=== PATIENT | female | born 1975 | race Caucasian/White ===

== ENCOUNTER 2022-08-24 06:45 | Day surgery (SDC) | payer SELFPAY ==
[2022-08-21 16:05] VITALS: BMI 29.5
[~2022-08-24 06:45] MED LIST: ACETAMINOPHEN 325 MG TABLET (FP) PO PRN; DOCUSATE SODIUM 100 MG CAPSULE (FP) PO PRN; HYDROmorphone HCl 2 MG/ML VIAL IVPB PRN; LACTATED RINGERS SOLUTION 1,000 ML IV SCH; ONDANSETRON 4 MG/2 ML VIAL IVPUSH PRN
[2022-08-24] MEDS ORDERED: oxyCODONE HCL 5 MG TABLET PO PRN ×2 (06:47→06:50)
[2022-08-24] MEDS ORDERED: diazePAM 2 MG TABLET PO PRN ×2 (06:47→21:43)
[2022-08-24] MEDS ORDERED: DOCUSATE SODIUM 100 MG CAPSULE (FP) PO PRN (06:48)
[2022-08-24] MEDS ORDERED: HYDROmorphone HCl 2 MG/ML VIAL IVPB PRN (06:48)
[2022-08-24] MEDS ORDERED: ROCURONIUM BROMIDE 50 MG/5 ML SYRINGE ONE (13:38)
[2022-08-24] MEDS ORDERED: PROPOFOL 20 ML ONE (13:38)
[2022-08-24] MEDS ORDERED: MIDAZOLAM HCL 2 MG/2 ML SINGLE DOSE VIAL ONE (13:38)
[2022-08-24] MEDS ORDERED: SUCCINYLCHOLINE CHLORIDE 200 MG/10 ML SYRINGE ONE (13:38)
[2022-08-24] MEDS ORDERED: LIDOCAINE HCL 2% 100 MG/5 ML DISP.SYRIN ONE (13:38)
[2022-08-24] MEDS ORDERED: BUPIVACAINE HCL/PF 0.25% (2.5MG/ML) 10 ML VIAL ONE (13:42)
[2022-08-24] MEDS ORDERED: EPINEPHrine/PF 1 MG/1 ML (1:1,000) AMPULE ONE (13:42)
[2022-08-24] MEDS ORDERED: LIDOCAINE HCL 1%, 10 MG/ML (20ML VIAL) ONE (13:43)
[2022-08-24] MEDS ORDERED: BACITRACIN 15 GM TUBE TOPICAL OINTMENT ONE (13:43)
[2022-08-24] MEDS ORDERED: GUM MASTIC/STORAX/MSAL/ALCOHOL 1 DRP DROPSBTL MC ONE (13:43)
[2022-08-24] MEDS ORDERED: BUPIVACAINE HCL/PF 2.5 MG/ML - 30 ML VIAL IJ ONE ×2 (13:43→18:15)
[2022-08-24] MEDS ORDERED: ACETAMINOPHEN INJECTION 100 ML IVPB ONE (13:55)
[2022-08-24] MEDS ORDERED: ONDANSETRON 4 MG/2 ML VIAL IVPUSH PRN ×2 (14:06→21:41)
[2022-08-24] MEDS ORDERED: HYDROmorphone HCl 2 MG/ML VIAL IVPUSH PRN ×2 (14:06)
[2022-08-24] MEDS ORDERED: LACTATED RINGERS SOLUTION 1,000 ML IV SCH (14:15)
[2022-08-24] MEDS ORDERED: LIDOCAINE HCL/PF 2% SDV 5ML VIAL ONE ×2 (14:44→16:23)
[2022-08-24] MEDS ORDERED: ceFAZolin SODIUM 1 GM VIAL ONE ×2 (14:57→18:13)
[2022-08-24] MEDS ORDERED: ONDANSETRON 4 MG/2 ML VIAL ONE (14:57)
[2022-08-24] MEDS ORDERED: DEXAMETHASONE SOD PHOSPHATE 4 MG/1 ML VIAL ONE (14:57)
[2022-08-24] MEDS ORDERED: HYDROmorphone HCL/PF 1 MG/ML VIAL ONE ×2 (14:59→18:17)
[2022-08-24] MEDS ORDERED: CEFAZOLIN 1 GM in DEXTROSE 5%-WATER - 50 ML IVPB SCH (15:00)
[2022-08-24 21:00] VITALS: RESP 18
[2022-08-24] MEDS ORDERED: ACETAMINOPHEN 325 MG TABLET (FP) PO PRN (21:40)
[2022-08-24] MEDS ORDERED: ENOXAPARIN NA (PORCINE) 40 MG/0.4 ML DISP.SYRIN SQ ONE ×2 (21:45→22:00)
[2022-08-24] MEDS: CEFAZOLIN 1 GM in DEXTROSE 5%-WATER - 50 ML IVPB SCH (22:01)
[2022-08-24] MEDS: oxyCODONE HCL 5 MG TABLET PO PRN (22:01)
[2022-08-25] MEDS: CEFAZOLIN 1 GM in DEXTROSE 5%-WATER - 50 ML IVPB SCH ×3 (02:50→11:14)
[2022-08-25] MEDS: oxyCODONE HCL 5 MG TABLET PO PRN ×2 (03:40→11:13)
[2022-08-25 11:25] VITALS: BP 105/52; PULSE 74; TEMP 98.4
== END 2022-08-25 14:00 | disposition home or self-care (01) ==
LOC: FASUSAT 06:45 → FM/S 06:45 → EDSTATUS 08:00 → FASU 09:33 → FASUSAT 08-25 14:00
PROVIDERS: ATTEND Surgery
CPT/HCPCS: 94760